=== PATIENT | male | born 1970 | race Caucasian/White ===

== ENCOUNTER 2016-11-14 23:12 | Emergency (ER) | payer OTHER ==
[~2016-11-14] VITALS: Ht 175.3 cm; Wt 77.1 kg
[2016-11-14 23:15] VITALS: BP 80/59
[2016-11-14 23:44] LABS: MEAN CORPUSCULAR HEMOGLOBIN 33.6 PG (27.0-31.0); MEAN CORPUSCULAR HGB CONC 35.9 G/DL (32.0-36.0); MEAN CORPUSCULAR VOLUME 94 FL (80-99); MEAN PLATELET VOLUME 6.4 FL (6.5-10.1); PLATELET COUNT 292 K/UL (150-450); RED BLOOD COUNT 5.12 M/UL (4.70-6.10); WHITE BLOOD COUNT 19.3 K/UL (4.8-10.8)
[2016-11-14 23:59] LABS: CALCIUM 10.3 mg/dL (8.6-10.2); CREATININE 1.7 mg/dL (0.7-1.2); GLOMERULAR FILTRATION RATE 43.8 mL/min (>60); POTASSIUM 3.4 mEQ/L (3.4-4.9); TROPONIN I < 0.30 ng/mL (<=0.30)
[2016-11-15 00:05] LABS: REFLEX LACTIC ACID YES OR NO YES
[2016-11-15 00:09] LABS: CKMB 3.2 ng/mL (< 6.7)
[2016-11-15 00:37] LABS: BAND NEUTROPHILS % (MANUAL) 5 % (0-8); BASOPHILS % (MANUAL) 1 % (0-2); EOSINOPHILS % (MANUAL) 1 % (0-3); LYMPHOCYTES % (MANUAL) 18 % (20-45); NEUTROPHILS % (MANUAL) 73 % (45-75); PLATELET ESTIMATE ADEQUATE; PLATELET MORPHOLOGY NORMAL; TOTAL CELLS COUNTED 100
[2016-11-15 00:47] LABS: APPEARANCE,URINE CLEAR; KETONES,URINE 1+ (NEGATIVE); LEUKOCYTE ESTERASE ,URINE 1+ (NEGATIVE); NITRITE,URINE NEGATIVE (NEGATIVE); PH,URINE 5 (4.5-8.0); PROTEIN,URINE 1+ (NEGATIVE); UROBILINOGEN,URINE 4 MG/DL (0.0-1.0)
--- NOTE | 2016-11-15 00:53 | Emergency Room Report ---
History of Present Illness General Chief Complaint: Flu Like Symptoms Source: Patient Present Illness HPI Is a 46-year-old male who is homeless. He presents with chief complaint of weakness and dizziness. He said he had a history of hypertension but better now. No medication. He was doing well until today. Now he felt weak and lightheaded. When he stood up he felt like passing out. has not eaten anything for 2 days. Diffuse body pain. One episode vomiting and diarrhea. has mild cough. No dysuria frequency. Denies any alcohol or drugs. He does smoke cigarettes. He called 911. Allergies: Coded Allergies: ASPIRIN (Verified Allergy, Unknown, 11/14/16) Patient History Past Medical History: see triage record, old chart reviewed, HTN Past Surgical History: other Pertinent Family History: none Social History: Reports: smoking, Denies: alcohol use, drug use Immunizations: other Reviewed Nursing Documentation: PMH: Agreed, PSxH: Agreed Nursing Documentation-PMH Hx Asthma: Yes Review of Systems Constitutional: Reports: malaise, weakness Eye: Denies: blurred vision, eye pain ENT: Denies: ear pain, nose congestion, throat swelling Respiratory: Denies: cough, shortness of breath Cardiovascular: Denies: chest pain, palpitations Gastrointestinal: Denies: abdominal pain, diarrhea, nausea, vomiting Musculoskeletal: Denies: back pain, joint pain Skin: Denies: rash Neurological: Denies: headache, numbness Endocrine: Denies: increased thirst, increased urine Hematologic/Lymphatic: Denies: easy bruising All Other Systems: negative except mentioned in HPI Physical Exam Vital Signs Date Time Temp Pulse Resp B/P Pulse Ox O2 Delivery O2 Flow Rate FiO2 11/14/16 23:08 98.1 89 16 80/59 91 Room Air vitals with hypotension and hypoxia. Repeat oxygenation was 95-97% on room air. Sp02 EP Interpretation: reviewed, normal General Appearance: no apparent distress, alert, other - Ill-appearing Head: normocephalic, atraumatic Eyes: bilateral eye EOMI, bilateral eye PERRL ENT: hearing grossly normal, normal pharynx Neck: full range of motion, supple, no meningismus Respiratory: chest non-tender, lungs clear, normal breath sounds Cardiovascular #1: regular rate, rhythm, no murmur Gastrointestinal: normal bowel sounds, no mass, no organomegaly, no bruit, non- distended, tenderness - Mild tenderness diffusely Musculoskeletal: back normal, gait/station normal, normal range of motion Psychiatric: mood/affect normal Skin: warm/dry Medical Decision Making Diagnostic Impression: Primary Impression: Pneumonia Qualified Codes: J18.9 - Pneumonia, unspecified organism Additional Impressions: Dehydration DAISY (acute kidney injury) Proteinuria Qualified Codes: R80.9 - Proteinuria, unspecified ER Course Patient presents with weakness and hypotension. He felt better now. He has pneumonia and a CT of the abdomen. No acute abdomen. No obstruction. Blood pressure stable. He's been eating and drinking without a problem. We'll discharge home to Lab Results Impression labs with leukocytosis Chest X-Ray Diagnostic Results Chest X-Ray Ordered: Yes # of Views/Limited/Complete: 1 View EP Interpretation: Yes Interpretation: no effusion, no pneumothorax, other - LLL interstitial infiltrates Indication: Shortness of Breath Impression: Other - pneumonia Interpreting ER Provider: Bob Delgado MD CT/MRI/US Diagnostic Results CT/MRI/US Diagnostic Results : Imaging Test Ordered: CT abd/pelvis Impression Read by radiologist. Bilateral confluent groundglass opacity in the lungs. Appendix normal. Last Vital Signs Date Time Temp Pulse Resp B/P Pulse Ox O2 Delivery O2 Flow Rate FiO2 11/14/16 23:15 98.1 89 16 80/59 91 Room Air Status: improved Disposition: HOME, SELF-CARE Condition: Stable Scripts Levofloxacin* (LEVAQUIN*) 500 Mg Tablet 500 MG ORAL DAILY, #7 TAB Prov: BOB DELGADO M.D. 11/15/16 Additional Instructions: Follow up with your in 2-3 days. Return if worse. BOB DELGADO M.D. Nov 15, 2016 00:53
[2016-11-15 01:01] LABS: ICTOTEST POSITIVE; RBC,URINE 0-2 /HPF (0 - 0); WBC,URINE 0-2 /HPF (0 - 0)
[2016-11-15 01:15] VITALS: BP 115/65
[2016-11-15] MEDS ORDERED: Azithromycin 250mg tab ORAL ONE (01:30)
[2016-11-15] MEDS ORDERED: cefTRIAXone 1 GM in NS 55 ML IVPB ONE (01:30)
[2016-11-15] MEDS ORDERED: LEVAQUIN500 MG ORAL (02:57)
[2016-11-15 03:15] VITALS: BP 127/68
[2016-11-15 05:15] VITALS: BP 118/58
[2016-11-15 05:45] VITALS: BP 121/62
--- NOTE | 2016-11-15 09:19 | Diagnostic Imaging Report ---
Indication: Abdominal pain Technique: Spiral acquisitions obtained through the abdomen and pelvis. No oral contrast utilized, per emergency room physician request No IV contrast utilized, per referring physician request.. Multiplanar reconstructions were generated. Total dose length product 679 mGycm. CTDIvol(s) 13 mGy. Dose reduction achieved using automated exposure control Comparison: None Findings: Normal appendix. No evidence of diverticulosis or diverticulitis. No small bowel distention. No free or loculated intraperitoneal air or fluid is evident. Distal esophagus, stomach, duodenum are unremarkable. The lack of IV contrast limits assessment of the solid organs. The liver, gallbladder, bile ducts, pancreas, spleen, adrenals, kidneys are unremarkable. No retroperitoneal or mesenteric mass or adenopathy. No pelvic mass or adenopathy. There are bilateral mostly central groundglass opacities at both lung bases. The bones are unremarkable. Impression: Bilateral pulmonary parenchymal central groundglass opacities, incompletely visualized. Nonspecific. Negative for evidence of acute abdominal or pelvic disease This agrees with the preliminary interpretation provided overnight by [facility]erad[facility] service. The CT scanner at [facility] is accredited by the [employer] and the scans are performed using protocols designed to limit radiation exposure to as low as reasonably achievable to attain images of sufficient resolution adequate for diagnostic evaluation.
--- NOTE | 2016-11-15 10:29 | Diagnostic Imaging Report ---
Indication: Chest pain Technique: One view of the chest Comparison: none Findings: Lungs and pleural spaces are clear. Heart size is normal. Impression: No acute process
== END 2016-11-15 05:45 | disposition home or self-care (01) ==
LOC: EDBD 23:12 → EMR 23:59
DX: J18.9 Pneumonia, unspecified organism (principal); E86.0 Dehydration; N17.9 Acute kidney failure, unspecified; R80.9 Proteinuria, unspecified; J45.909 Unspecified asthma, uncomplicated; F17.200 Nicotine dependence, unspecified, uncomplicated; Z79.82 Long term (current) use of aspirin
CPT/HCPCS: 36415; 71010; 74176; 80053; 80300; 81003; 82550; 82553; 83605; 84484; 85007; 85025; 87040; 96360; 96374; 96375; 99284; J0696; Q0144